=== PATIENT | female | born 1935 ===

== ENCOUNTER 2022-11-06 15:16 | Outpatient (REF) | payer MEDICARE, SELFPAY ==
[2022-11-08 00:33] LABS: Influenza A RNA Result Negative (Negative); Influenza B RNA Result Negative (Negative); RSV RNA Result Negative (Negative)
== END 2022-11-06 15:17 | disposition home or self-care (01) ==
LOC: NCHCN 15:16
PROVIDERS: Visit Provider Family Medicine
DX: J11.1 Influenza due to unidentified influenza virus with other respiratory manifestations (principal)
CPT/HCPCS: 87631

== ENCOUNTER 2023-01-06 14:28 | Outpatient (REF) | payer MEDICARE, SELFPAY ==
[2023-01-06 14:58] LABS: Anion Gap 9.7 mmol/L (3-11); BUN 17 mg/dL (7-18); CO2 26.3 mmol/L (21.0-32.0); CREATININE 1.1 mg/dL (0.55-1.02); Calcium 8.6 mg/dL (8.5-10.1); Chloride 109 mmol/L (98-107); Estimated GFR 49.24 (mL/min/1.73m2); Glucose 128 mg/dL (74-106); Potassium 4.2 mmol/L (3.5-5.1); Sodium 145 mmol/L (136-145)
[2023-01-06 15:10] LABS: MCH 30.2 pg (27.0-33.0); MCHC 32.6 % (32.0-36.0); MCV 93 fL (80-95); MPV 9.6 fL (8.0-11.0); Platelet Count 366 10^3/uL (130-400); RBC 2.91 10^6/uL (3.93-5.22); RDW 14.3 % (11.7-14.6); RDW-SD 48.5 fL; WBC 8.79 10^3/uL (4.4-10.8)
[2023-01-06 16:25] LABS: HGB 8.8 g/dL (11.2-15.7)
== END 2023-01-06 14:29 | disposition home or self-care (01) ==
LOC: LBN 14:28
PROVIDERS: Visit Provider Family Medicine
DX: N17.9 Acute kidney failure, unspecified (principal); N13.0 Hydronephrosis with ureteropelvic junction obstruction
CPT/HCPCS: 80048; 85027

== ENCOUNTER 2023-01-08 21:20 | Outpatient (REF) | payer MEDICARE, SELFPAY ==
[2023-01-08 22:07] LABS: Bilirubin Negative (Negative); Blood Small (Negative); Clarity Cloudy (Clear); Glucose Negative (Negative); Ketones Negative (Negative); Leukocyte Esterase Large (Negative); Nitrite Negative (Negative); pH 8.5 (5-8)
[2023-01-08 22:11] LABS: WBC >50 HPF (0-5)
[2023-01-08 22:12] LABS: Bacteria Many HPF (Negative); C & S Indicated? C&S Done As Ordered; Casts Negative LPF (Negative); Crystals Negative HPF (Negative); Epithelial Cells Few HPF (Negative); Mucus Negative (Negative); Other Cells Negative (Negative)
== END 2023-01-08 21:21 | disposition home or self-care (01) ==
LOC: NCHCN 21:20
PROVIDERS: Visit Provider Family Medicine
DX: N39.0 Urinary tract infection, site not specified (principal); N17.9 Acute kidney failure, unspecified; N13.0 Hydronephrosis with ureteropelvic junction obstruction; D53.9 Nutritional anemia, unspecified
CPT/HCPCS: 81003; 81015; 87086